=== PATIENT | male | born 1965 | race Caucasian/White ===

== ENCOUNTER 2021-03-18 08:34 | Outpatient (REF) | payer OTHER, SELFPAY ==
[2021-03-18 08:50] LABS: MANUAL DIFF FLAG NO
[2021-03-18 09:47] LABS: Basophils Percent Auto 0.6 % (0-2); Eosinophils Absolute Auto 0.1 X10*3/uL (0.0-0.4); Eosinophils Percent Auto 2.4 % (0-4); Hematocrit 45.8 % (42.0-52.0); Imm Gran Abs Auto 0.01 X10*3/uL (0.00-0.03); Imm Gran Pct Auto 0.2 % (0.0-0.4); Lymphocytes Absolute Auto 2.1 X10*3/uL (1.2-4.9); Lymphocytes Percent Auto 44.1 % (20-40); Mean Corpuscular HGB Conc 34.9 g/dl (31.0-36.0); Mean Corpuscular Hemoglobin 29.9 pg (27.0-33.0); Mean Corpuscular Volume 85.6 fL (80.0-98.0); Mean Platelet Volume 9.9 fL (9.4-12.4); Monocytes Absolute Auto 0.5 X10*3/uL (0.1-1.2); Monocytes Percent Auto 10.1 % (2-11); Neutrophils Percent Auto 42.6 % (45-73); Platelet Count 207 X10*3/uL (160-400); Red Blood Count 5.35 X10*6/uL (4.60-5.80); Red Cell Distribution Width 12.8 % (11.0-16.0); White Blood Count 4.7 X10*3/uL (4.8-10.8)
[2021-03-18 10:12] LABS: Alanine Aminotransferase 34 U/L (0-40); Albumin Level 4.5 g/dL (3.5-5.0); Alkaline Phosphatase 105 U/L (39-117); Anion Gap 11 (12-20); Aspartate Amino Transferase 22 U/L (5-37); Bilirubin Total 0.9 mg/dL (0.0-1.0); Blood Urea Nitrogen 10 mg/dL (9-16); Calcium 9.3 mg/dL (8.4-10.2); Carbon Dioxide 30 mmol/L (22-29); Chloride 104 mmol/L (96-108); Cholesterol 184 mg/dL; Estimated Glomerular Filt Rate > 60; Glucose Fasting 87 mg/dL (60-99); HDL Cholesterol 38 mg/dL; LDL Cholesterol Calculated 114 mg/dl; Sodium 141 mmol/L (135-145); Total Protein 7.5 g/dL (6.5-8.0); Triglycerides 162 mg/dL
[2021-03-25 12:56] LABS: Vitamin D 25-OH, D2 <4 ng/mL; Vitamin D 25-OH, D3 66 ng/mL; Vitamin D 25-OH, Total 66 ng/mL (30-100)
== END 2021-03-18 08:35 | disposition home or self-care (01) ==
LOC: HO.LAB 08:34
PROVIDERS: PCP Internal Medicine; Visit Provider Internal Medicine
DX: K92.1 Melena (principal); D64.9 Anemia, unspecified; I10 Essential (primary) hypertension; E78.5 Hyperlipidemia, unspecified; E55.9 Vitamin D deficiency, unspecified
CPT/HCPCS: 36415; 80053; 80061; 82306; 85025

== ENCOUNTER 2021-07-13 09:01 | Outpatient (REF) | payer OTHER, SELFPAY ==
--- NOTE | 2021-07-13 09:06 | ECG_ITS ---
Test Reason : R00.0 Blood Pressure : / mmHG Vent. Rate : 078 BPM Atrial Rate : 078 BPM P-R Int : 172 ms QRS Dur : 096 ms QT Int : 382 ms P-R-T Axes : 075 041 049 degrees QTc Int : 435 ms Normal sinus rhythm Normal ECG When compared with ECG of 05-FEB-2019 16:31, No significant change was found Referred By: Kathryn Wheeler Electronically Signed By:Lukas Sherman
[2021-07-13 11:09] LABS: Thyroid Stimulating Hormone 1.08 uIU/mL (0.32-4.0)
== END 2021-07-13 09:02 | disposition home or self-care (01) ==
LOC: HO.LAB 09:01
PROVIDERS: PCP Internal Medicine; Visit Provider Internal Medicine
DX: R00.0 Tachycardia, unspecified (principal)
CPT/HCPCS: 36415; 84443; 93005

== ENCOUNTER 2022-02-21 08:02 | Outpatient (REF) | payer OTHER, SELFPAY ==
[2022-02-21 09:02] LABS: Alanine Aminotransferase 43 U/L (0-40); Albumin Level 4.4 g/dL (3.5-5.0); Alkaline Phosphatase 105 U/L (39-117); Anion Gap 14 (12-20); Aspartate Amino Transferase 27 U/L (5-37); Bilirubin Total 0.3 mg/dL (0.0-1.0); Blood Urea Nitrogen 11 mg/dL (9-16); Calcium 9.1 mg/dL (8.4-10.2); Carbon Dioxide 27 mmol/L (22-29); Chloride 103 mmol/L (96-108); Cholesterol 174 mg/dL; Estimated Glomerular Filt Rate > 60; Glucose Random 94 mg/dL (60-115); HDL Cholesterol 38 mg/dL; LDL Cholesterol Calculated 106 mg/dl; Potassium 3.9 mmol/L (3.3-5.1); Sodium 140 mmol/L (135-145); Total Protein 7.2 g/dL (6.5-8.0); Triglycerides 151 mg/dL
[2022-02-21 09:25] LABS: Vitamin D 25-OH Total 29.6 ng/mL (>30)
== END 2022-02-21 08:03 | disposition home or self-care (01) ==
LOC: HO.LAB 08:02
PROVIDERS: PCP Internal Medicine; Visit Provider Internal Medicine
DX: Z00.00 Encounter for general adult medical examination without abnormal findings (principal); E55.9 Vitamin D deficiency, unspecified
CPT/HCPCS: 36415; 80053; 80061; 82306

== ENCOUNTER 2023-01-31 08:01 | Outpatient (REF) | payer OTHER, SELFPAY ==
[2023-01-31 10:24] LABS: Alanine Aminotransferase 22 U/L (0-40); Albumin Level 4.3 g/dL (3.5-5.0); Alkaline Phosphatase 97 U/L (39-117); Anion Gap 12 (12-20); Aspartate Amino Transferase 21 U/L (5-37); Bilirubin Total 0.5 mg/dL (0.0-1.0); Blood Urea Nitrogen 7 mg/dL (9-16); Calcium 9.5 mg/dL (8.4-10.2); Carbon Dioxide 27 mmol/L (22-29); Chloride 106 mmol/L (96-108); Cholesterol 196 mg/dL (<200); Estimated Glomerular Filt Rate > 60; Glucose Fasting 100 mg/dL (60-99); HDL Cholesterol 37 mg/dL (>40); LDL Cholesterol Calculated 112 mg/dL (<100); Potassium 3.5 mmol/L (3.3-5.1); Sodium 141 mmol/L (135-145); Total Protein 7.4 g/dL (6.5-8.0); Triglycerides 235 mg/dL (<150)
[2023-01-31 10:25] LABS: PSA,Total (Free>4and<10) 0.39 ng/mL (0.00-4.00)
[2023-01-31 10:47] LABS: Vitamin D 25-OH Total 27.2 ng/mL (>30)
== END 2023-01-31 08:02 | disposition home or self-care (01) ==
LOC: HO.LAB 08:01
PROVIDERS: PCP Internal Medicine; Visit Provider Internal Medicine
DX: Z12.5 Encounter for screening for malignant neoplasm of prostate (principal); R00.0 Tachycardia, unspecified; E55.9 Vitamin D deficiency, unspecified
CPT/HCPCS: 36415; 80053; 80061; 82306; 84153

== ENCOUNTER 2023-02-07 07:16 | Outpatient (AMB) | payer OTHER, SELFPAY ==
[2023-02-07 07:34] VITALS: BP 148/90; BMI 24.4
--- NOTE | 2023-02-07 07:34 | A.OFFPC_ITS ---
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: No Accompanied by: Self / Same As Patient Allergies amlodipine Adverse Reaction (Intermediate, Verified 02/07/23 07:41) leg edema Contrast dye Allergy (Intermediate, Uncoded 02/07/23 07:41) palpitations, vomiting Medication List - Last Reconciled 02/07/23 by Kathryn Wheeler MD amitriptyline 10 mg PO BEDTIME 90 days amlodipine-benazepril 5-40 mg 1 cap PO DAILY 90 days latanoprost 0.005% 1 drp ophthalmic (eye) QPM timolol maleate 0.5% 1 drp ophthalmic (eye) QAM trazodone 50 mg PO BEDTIME PRN 90 days Tobacco use date assessed: 05/24/22 Dental Screening Dental Screen Date: 02/07/23 Did you have a dental visit in the last 12 months?: Yes Did you have a dental problem in the last 6 months where you did not have access to dental care?: No Was dental information given to patient?: Patient has dentist HPI HPI Comments History of Present Illness Details This is a 59-year-old male that comes for his physical exam. Last colonoscopy was 2018 showing sigmoid diverticulosis and next colonoscopy should be 2023 due to poor prep has per Gastroenterology. No chest pain or shortness of breath. No fever cough. [facility] Medical History Tachycardia Hypovitaminosis D Hematochezia Primary insomnia Essential hypertension Surgical History (Updated 02/07/23 @ 07:46 by Kathryn Wheeler MD) Status post glaucoma surgery History of lipoma Rectal prolapse Family History Father Leukemia Mother No problems noted. Social History Housing: House Alcohol intake: former Patient Tobacco Use Status: Former Tobacco user Tobacco use type: Cigarette e-Cigarette/Vaping Use: Never Used Second Hand Smoke Exposure: No service: No Current occupational status: employed Current occupational exposures/hazards: No Cognitive needs: No Hearing needs: No Vision needs: Yes Questionnaire Thrive Questionnaire Date Thrive assessed: 05/24/22 RANJEET-7 AMB Questionnaire RANJEET-7 Date RANJEET - 7 assessed: 05/24/22 Source: Developed by Drs. Fernando Blair, Pretty Alvarado, César Cowart and colleagues, with an educational sendy from [employer]. Review of Systems Const All systems reviewed & are unremarkable except as noted in HPI and below Eyes Reports no additional complaints, Denies change in vision and Denies other visual disturbances Card Denies chest pain at rest, Denies chest pain with activity, Denies edema, Denies irregular heart rhythm, Denies claudication, Denies dyspnea, Denies dyspnea on exertion, Denies orthopnea, Denies paroxysmal nocturnal dyspnea and Denies slow heart rate Resp Denies cough, Denies dyspnea and Denies dyspnea on exertion GI Denies abdominal pain, Denies change in bowel habits, Denies excessive flatus, Denies nausea and Denies vomiting Denies urinary hesitancy, Denies urinary incontinence and Denies urinary urgency Musc Denies abnormal gait, Denies atrophy, Denies deformity and Denies limited range of motion Skin/Breast Denies bleeding lesions, Denies changing lesions and Denies rash Neuro Denies abnormal gait and Denies lack of coordination Physical exam (Primary Care) Vital Signs: Last Vital Signs BP 148/90 H 02/07/23 07:34 BMI result Body Mass Index 24.4 Tobacco/Smoking Status: Tobacco use Status Tobacco use date assessed 05/24/22 02/07/23 07:38 Patient Tobacco Use Status Former Tobacco user 02/07/23 07:38 Tobacco use type Cigarette 02/07/23 07:38 e-Cigarette/Vaping Use Never Used 02/07/23 07:38 Thrive Assessment: Date of Thrive Assessment Date Thrive assessed 05/24/22 02/07/23 07:38 Const Orientation/consciousness: patient oriented x3 HENMT Head: Yes normal to inspection, Yes normocephalic and Yes atraumatic Ears: external ears normal Eyes General: appearance normal, both eyes and all related structures Eyelids: Yes eyelids normal Conjunctivae: conjunctivae normal Neck Neck: Yes normal visual inspection and Yes supple Resp Effort & Inspection: normal respiratory effort Auscultation: clear to auscultation bilaterally Cardio Jugular venous distension: no JVD Rate: regular rate Rhythm: regular rhythm Heart sounds: S1 normal heart sound present and S2 normal heart sound present GI Inspection: Yes normal to inspection Palpation (GI): Soft to palpation and nontender Auscultation: normal bowel sounds Skin General skin exam: no rashes or lesions noted Neuro General: patient oriented x3 and no focal motor deficits Extrem General: Yes full ROM Psych Appearance: grossly normal Assessment and Plan Assessment & Plan (1) Physical exam: Code(s): Z00.00 - Encounter for general adult medical examination without abnormal findings Plan: Repeat in a year. Coding Level of Care Code Est Pt Prev Care 40-64y(18562) Diagnoses Physical exam Z00.00 Time Spent (min) 31
[2023-02-07 07:59] VITALS: BP 130/80
== END 2023-02-07 07:58 | disposition home or self-care (01) ==
PROVIDERS: PCP Internal Medicine; Visit Provider Internal Medicine
DX: Z00.00 Encounter for general adult medical examination without abnormal findings (principal)
CPT/HCPCS: 99396

== ENCOUNTER 2023-03-06 07:22 | Outpatient (AMB) | payer OTHER, SELFPAY ==
[2023-03-06 07:33] VITALS: BP 132/82; PULSE 69; O2SAT 98; BMI 24.5
--- NOTE | 2023-03-06 07:33 | MHC.PC.OV ---
Vital Signs 03/06/23 07:33 Height 6 ft 1.82 in Weight 190 lb BMI 24.5 BP 132/82 Blood Pressure Location Lt brachial Position Sitting Pulse 69 Pulse Source Pulse Oximeter Pulse Oximetry (%) 98 Oxygen Delivery Method Room Air Intake Visit Reasons: Ongoing cough Allergies amlodipine Adverse Reaction (Intermediate, Verified 03/06/23 07:44) leg edema Contrast dye Allergy (Intermediate, Uncoded 03/06/23 07:34) palpitations, vomiting Medication List - Last Reconciled 03/06/23 by HOLLIS Arrington amitriptyline 10 mg PO BEDTIME 90 days amlodipine-benazepril 5-40 mg 1 cap PO DAILY 90 days latanoprost 0.005% 1 drp ophthalmic (eye) QPM timolol maleate 0.5% 1 drp ophthalmic (eye) QAM trazodone 50 mg PO BEDTIME PRN 90 days Tobacco use date assessed: 05/24/22 Dental Screening Dental Screen Date: 03/06/23 Did you have a dental visit in the last 12 months?: Yes Did you have a dental problem in the last 6 months where you did not have access to dental care?: No Was dental information given to patient?: Patient has dentist HPI HPI Comments History of Present Illness Details 59-year-old male past medical history significant for hypertension, insomnia and glaucoma. Patient Dr.Roca ho seen in October, patient presents today for ongoing cough. 2 weeks ago went to wedding with alot of people. Shortly after got sick was sick with similar symptoms. Few days after that patient reports he started Coughing,chest congestion, sore throat x 1 week which he states is starting to improve. Patient reports that he tested no negative for COVID. Patient denies any shortness of breath and fevers. Reports he is using [id number] Robitussin with improvement. [facility] Medical History Tachycardia Hypovitaminosis D Hematochezia Primary insomnia Essential hypertension Surgical History (Updated 02/07/23 @ 07:46 by Kathryn Wheeler MD) Status post glaucoma surgery History of lipoma Rectal prolapse Family History Father Leukemia Mother No problems noted. Social History Housing: House Alcohol intake: former Patient Tobacco Use Status: Former Tobacco user Tobacco use type: Cigarette e-Cigarette/Vaping Use: Never Used Second Hand Smoke Exposure: No service: No Current occupational status: employed Current occupational exposures/hazards: No Cognitive needs: No Hearing needs: No Vision needs: Yes Questionnaire PHQ-9 Over the last 2 weeks, how often have you been bothered by any of the following problems? 1. Little interest or pleasure in doing things: not at all 2. Feeling down, depressed, or hopeless: not at all 3. Trouble falling or staying asleep, or sleeping too much: not at all 4. Feeling tired or having little energy: not at all 5. Poor appetite or overeating: not at all 6. Feeling bad about yourself - or that you are a failure or have let yourself or your family down: not at all 7. Trouble concentrating on things, such as reading the newspaper or watching television: not at all 8. Moving or speaking so slowly that other people could have noticed. Or the opposite - being so fidgety or restless that you have been moving around a lot more than usual: not at all 9. Thoughts that you would be better off or of hurting yourself in some way: not at all Total score: 0 Depression Screening Interpretation: Negative Depression Screening Done: Yes 41677 - PHQ-9 Billing: Yes Source: Developed by Drs. Fernando Blair, Pretty Alvarado, César Cowart and colleagues, with an educational sendy from [employer]. Thrive Questionnaire Date Thrive assessed: 05/24/22 AUDIT C Alcohol Use Questionnaire (AUDIT-C) 1. How often do you have a drink containing alcohol?: Never Total Score: 0 Score Reviewed/Action Taken: No RANJEET-7 AMB Questionnaire RANJEET-7 Date RANJEET - 7 assessed: 05/24/22 Source: Developed by Drs. Fernando Blair, César Rivera and colleagues, with an educational sendy from [employer]. Review of Systems Const Denies chills, Denies fatigue, Denies fever(s) and Denies poor appetite Eyes Denies no additional complaints ENT Reports Normal hearing present Card Denies chest pain, Denies syncope, Denies rapid heart rate and Denies dyspnea Resp Reports cough and Denies dyspnea GI Denies change in stool character, Denies constipation, Denies diarrhea, Denies nausea and Denies vomiting Denies dysuria, Denies urinary frequency and Denies urinary urgency Neuro Reports Normal hearing present, Denies confusion and Denies syncope Psych Denies confusion Endo Denies fatigue Physical exam (Primary Care) Vital Signs: Last Vital Signs Pulse 69 03/06/23 07:33 BP 132/82 03/06/23 07:33 Pulse Ox 98 03/06/23 07:33 Oxygen Delivery Method Room Air 03/06/23 07:33 BMI result Body Mass Index 24.5 Tobacco/Smoking Status: Tobacco use Status Tobacco use date assessed 05/24/22 03/06/23 07:35 Patient Tobacco Use Status Former Tobacco user 03/06/23 07:35 Tobacco use type Cigarette 03/06/23 07:35 e-Cigarette/Vaping Use Never Used 03/06/23 07:35 PHQ-9: PHQ-9 Score PHQ-9: Total score 0 03/06/23 07:51 Depression Screening Interpretation: Negative Thrive Assessment: Date of Thrive Assessment Date Thrive assessed 05/24/22 03/06/23 07:35 Const General: No confusion Orientation/consciousness: No confusion HENMT Head: Yes normocephalic and Yes atraumatic Ears: external ears normal and TM's normal bilaterally General nose exam: Normal external nose present and Normal nasal mucous membranes and turbinates present Face and sinus: Yes normal facial exam and Yes sinuses nontender Mouth: moist mucous membranes Throat: Yes tonsils normal Eyes Conjunctivae: conjunctivae normal Neck Neck: Yes no lymphadenopathy and Yes supple Thyroid: Thyroid normal Chest Chest palpation & inspection: normal inspection of the chest Resp Effort & Inspection: normal respiratory effort Auscultation: clear to auscultation bilaterally, no crackles, no rhonchi and no wheezes Cardio Rate: regular rate Rhythm: regular rhythm Heart sounds: S1 normal heart sound present and S2 normal heart sound present GI Inspection: Yes normal to inspection Neuro General: No confusion Cranial nerves: Yes Normal hearing present Extrem General: No edema Assessment and Plan Assessment & Plan (1) Essential hypertension: Code(s): I10 - Essential (primary) hypertension Plan: Continue on amlodipine-benazepril. Follow low-salt diet and exercise. (2) Upper respiratory infection: Code(s): J06.9 - Acute upper respiratory infection, unspecified Plan: At home COVID test negative. Upper respiratory infection likely related to a viral illness. Patient advise can continue to treat symptomatically wrist Robitussin, offered prescription for benzonatate however patient declined states Robitussin is helping him and cough is improving For mild sore throat patient can gargle with warm salt water and use throat lozenges to soothe throat. Signs and symptoms reviewed with patient when to follow-up with PCP. Plan Keep scheduled follow-up with PCP in June Coding Level of Care Code Est Pt Level 3 (61640) Diagnoses Essential hypertension I10 Upper respiratory infection J06.9
== END 2023-03-06 07:57 | disposition home or self-care (01) ==
PROVIDERS: PCP Internal Medicine; Visit Provider Nurse Practitioner Family
DX: I10 Essential (primary) hypertension (principal); J06.9 Acute upper respiratory infection, unspecified
CPT/HCPCS: 99213

== ENCOUNTER 2023-03-09 10:27 | Outpatient (AMB) | payer OTHER, SELFPAY ==
[2023-03-09 10:30] VITALS: BP 140/78; PULSE 80; TEMP 36.7; O2SAT 99; BMI 24.4
--- NOTE | 2023-03-09 10:30 | MHC.OFFWIV ---
Intake Vital Signs 03/09/23 10:30 Height 6 ft 1.82 in Weight 189 lb BMI 24.4 BP 140/78 H Blood Pressure Location Lt brachial Position Sitting Pulse 80 Pulse Source Pulse Oximeter Temp 98.0 F Temp Source Temporal Artery Scan Pulse Oximetry (%) 99 Oxygen Delivery Method Room Air Intake Visit Reasons: EP, cough (masked) Intake Note: pt is here for c/o cough 2 weeks Patient Tobacco Use Status: Former Tobacco user Allergies amlodipine Adverse Reaction (Intermediate, Verified 03/09/23 10:30) leg edema Contrast dye Allergy (Intermediate, Uncoded 03/06/23 07:34) palpitations, vomiting Do you need a note to return to daycare/school/sports/work: Yes HPI HPI Comments History of Present Illness Details This is a 59-year-old male who presents to the office today for sick visit. Patient complaining of sore throat and cough x2 weeks. 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 He denies any fevers or chills. He reports some wheezing at nighttime. He denies any sputum production. He denies any chest pain or shortness of breath. He reports odynophagia but denies dysphagia or throat swelling. He denies any neck swelling. [facility] Medical History Tachycardia Hypovitaminosis D Hematochezia Primary insomnia Essential hypertension Surgical History (Updated 02/07/23 @ 07:46 by Kathryn Wheeler MD) Status post glaucoma surgery History of lipoma Rectal prolapse Family History Father Leukemia Mother No problems noted. Social History Housing: House Alcohol intake: former Patient Tobacco Use Status: Former Tobacco user Tobacco use type: Cigarette e-Cigarette/Vaping Use: Never Used Second Hand Smoke Exposure: No service: No Current occupational status: employed Current occupational exposures/hazards: No Cognitive needs: No Hearing needs: No Vision needs: Yes Review of Systems Const All systems reviewed & are unremarkable except as noted in HPI and below Reports no additional complaints Eyes Reports no additional complaints ENT Reports no additional complaints Card Reports no additional complaints Resp Reports no additional complaints GI Reports no additional complaints Reports no additional complaints Musc Reports no additional complaints Skin/Breast Reports system reviewed and no additional complaints, except as documented Neuro Reports no additional complaints Psych Reports no additional complaints Endo Reports no additional complaints Martell/Lymph Reports no additional complaints Aller/Immun Reports no additional complaints Physical Exam Const Other: Vital signs reviewed. Constitutional: Non-toxic appearing. No acute distress. Well-developed and well-nourished. HEENT: Normocephalic and atraumatic. Tympanic membranes without erythema, edema, or bulging bilaterally. External auditory canals without erythema or edema bilaterally. Moist mucous membranes. Mild posterior pharyngeal erythema without exudates. No peritonsillar mass or abscess. No uvular deviation. No tonsillar hypertrophy/edema. Skin: Warm and dry. No rashes or lesions noted. Neck: Full and painless range of motion. No cervical lymphadenopathy. No unilateral neck swelling. Cardio: Regular rate and rhythm. No murmurs, gallops, or rubs. No lower extremity edema. No JVD. Pulmonary: No respiratory distress. No accessory muscle usage. Minimal scattered expiratory wheezing. Gastrointestinal: Soft, nontender, and nondistended in all 4 quadrants. Normoactive bowel sounds in all 4 quadrants. Genitourinary: No CVA tenderness. Musculoskeletal: Normal range of motion in joints throughout the body. No deformity or other signs of injury. Neuro: Alert and oriented x4. Cranial nerves 2-12 grossly intact. No focal deficits appreciated. Psych: Normal mood and affect. Assessment & Plan Assessment & Plan (1) Acute bronchitis: Code(s): J20.9 - Acute bronchitis, unspecified Plan: This is a 59-year-old male presenting with persistent sore throat and cough x2 weeks. On physical examination, patient has minimal scattered expiratory wheezing and mild posterior pharyngeal erythema without exudates. His vital signs are stable, his physical exam is otherwise benign, and he is overall nontoxic appearing. History and physical most consistent with viral pharyngitis and acute bronchitis. No evidence of peritonsillar mass/abscess, peritonsillar cellulitis, or, unilateral neck swelling. No fevers/chills or sputum production to suggest pneumonia. Check rapid strep test. Check COVID/flu/RSV. Patient will be treated with p.o. prednisone 40 mg daily x5 days as well as p.o. azithromycin 500 mg today followed by 250 mg daily x4 days. Recommended symptomatic management including rest, increased fluids, advil/tylenol for pain/fever, salt water gargles, and over the counter throat lozenges/decongestants. Patient advised to follow up here or go to the emergency room for worsening/persistent symptoms. Patient verbalizes understanding and is in agreement the plan. Plan This is a 59-year-old male presenting to the office complaining of . Orders: Orders SARS-CoV2/FLU/RSV Today R09.89 - Other specified symptoms and signs involving the circulatory and respiratory systems Medications: New azithromycin For 250 mg dose pack: take 500 mg today (day 1), then 250 mg for 4 days (days 2-5) PO 6 tabs 0RF prednisone 40 mg (2 x 20 mg) PO DAILY 10 tabs 0RF Coding Level of Care Code Est Pt Level 3 (73828) Diagnoses Acute bronchitis J20.9
== END 2023-03-09 11:05 | disposition home or self-care (01) ==
PROVIDERS: PCP Internal Medicine; Visit Provider Physician Assistant Medical
DX: J20.9 Acute bronchitis, unspecified (principal)
CPT/HCPCS: 99213

== ENCOUNTER 2023-03-09 11:04 | Outpatient (REF) | payer OTHER, SELFPAY ==
[2023-03-09 15:31] LABS: Influenza A PCR NEGATIVE (Negative); Influenza B PCR NEGATIVE (Negative); Resp Syncy Virus RNA Qual PCR NEGATIVE (Negative); SARS COV2 PCR INHOUSE POSITIVE (Negative)
== END 2023-03-09 11:05 | disposition home or self-care (01) ==
LOC: HO.LAB 11:04
PROVIDERS: Visit Provider Physician Assistant Medical
DX: Z11.52 Encounter for screening for COVID-19 (principal); Z20.822 Contact with and (suspected) exposure to COVID-19; R07.89 Other chest pain
CPT/HCPCS: 0241U

== ENCOUNTER 2023-04-12 07:31 | Outpatient (AMB) | payer OTHER, SELFPAY ==
--- NOTE | 2023-04-12 07:32 | MHC.PC.OV ---
Intake Visit Reasons: antibiotic questions Allergies amlodipine Adverse Reaction (Intermediate, Verified 04/12/23 07:32) leg edema Contrast dye Allergy (Intermediate, Uncoded 04/12/23 07:32) palpitations, vomiting Tobacco use date assessed: 05/24/22 Dental Screening Dental Screen Date: 04/18/23 Did you have a dental visit in the last 12 months?: Yes Did you have a dental problem in the last 6 months where you did not have access to dental care?: No Was dental information given to patient?: Patient has dentist HPI HPI Comments History of Present Illness Details 59-year-old male past medical history significant for hypertension, insomnia and glaucoma. Patient last seen in February. Patient presents today for a telehealth appointment. Patient tested positive for COVID on 03/09/23 states he was seen at the walk-in clinic in [place] was prescribed a Z-Jayant with no improvement. Patient went to urgent care in [place] on 03/20/2023 for ongoing cough, shortness of breath and wheezing patient reports that he did have a chest x-ray completed which showed a little bit of fluid in his lungs patient was treated with doxycycline, prednisone, cough medicine and inhaler for likely post COVID pneumonia. Patient reports today that he is feeling better he does still have some lingering wheezing and cough in the morning when he has to clear himself out. Denies any fever, chills, sob. Patient reports using albuterol inhaler daily with relief. [facility] Medical History (Updated 04/12/23 @ 07:51 by HOLLIS Arrington) Tachycardia Hypovitaminosis D Hematochezia Primary insomnia Essential hypertension Surgical History (Updated 02/07/23 @ 07:46 by Kathryn Wheeler MD) Status post glaucoma surgery History of lipoma Rectal prolapse Family History Father Leukemia Mother No problems noted. Social History Housing: House Alcohol intake: former Patient Tobacco Use Status: Former Tobacco user Tobacco use type: Cigarette e-Cigarette/Vaping Use: Never Used Second Hand Smoke Exposure: No service: No Current occupational status: employed Current occupational exposures/hazards: No Cognitive needs: No Hearing needs: No Vision needs: Yes Questionnaire PHQ-9 Over the last 2 weeks, how often have you been bothered by any of the following problems? 1. Little interest or pleasure in doing things: not at all 2. Feeling down, depressed, or hopeless: not at all 3. Trouble falling or staying asleep, or sleeping too much: not at all 4. Feeling tired or having little energy: not at all 5. Poor appetite or overeating: not at all 6. Feeling bad about yourself - or that you are a failure or have let yourself or your family down: not at all 7. Trouble concentrating on things, such as reading the newspaper or watching television: not at all 8. Moving or speaking so slowly that other people could have noticed. Or the opposite - being so fidgety or restless that you have been moving around a lot more than usual: not at all 9. Thoughts that you would be better off or of hurting yourself in some way: not at all Total score: 0 Depression Screening Interpretation: Negative Depression Screening Done: Yes 50093 - PHQ-9 Billing: Yes Source: Developed by Drs. Fernando Blair, Pretty Alvarado, César Cowart and colleagues, with an educational sendy from [employer]. Thrive Questionnaire Date Thrive assessed: 05/24/22 AUDIT C Alcohol Use Questionnaire (AUDIT-C) 1. How often do you have a drink containing alcohol?: Never Total Score: 0 Score Reviewed/Action Taken: No RANJEET-7 AMB Questionnaire RANJEET-7 Date RANJEET - 7 assessed: 05/24/22 Source: Developed by Drs. Fernando Blair, César Rivera and colleagues, with an educational sendy from [employer]. Review of Systems Card Denies chest pain and Denies rapid heart rate Resp Reports cough and Reports wheezing Aller/Immun Reports wheezing Physical exam (Primary Care) Vital Signs: unbale to complete telehealth exam Tobacco/Smoking Status: Tobacco use Status Tobacco use date assessed 05/24/22 04/12/23 07:37 Patient Tobacco Use Status Former Tobacco user 04/12/23 07:37 Tobacco use type Cigarette 04/12/23 07:37 e-Cigarette/Vaping Use Never Used 11/30/23 07:37 PHQ-9: PHQ-9 Score PHQ-9: Total score 0 04/12/23 07:45 Depression Screening Interpretation: Negative Thrive Assessment: Date of Thrive Assessment Date Thrive assessed 05/24/22 04/12/23 07:37 Telehealth Telehealth Location of provider rendering services: practice address Location of patient: address on file Patient Identification confirmed using: Name, : Yes Telehealth method: voice only Patient verbally consented to treatment: Yes Patient verbally consented to billing insurance company: Yes Patient informed of any privacy concerns related to visit: Yes Assessment and Plan Assessment & Plan (1) Cough: Code(s): R05.9 - Cough, unspecified Plan: Can continue to cough medicine as needed as prescribed urgent care. (2) Wheezing: Code(s): R06.2 - Wheezing Plan: Will send short course of prednisone given patient continuing to experience lingering wheezing. Continue use inhaler as needed. Signs and symptoms reviewed with patient when to follow-up or seek medical attention. Patient agreeable with plan of care. Plan Keep scheduled follow-up with PCP Medications: New prednisone 10 mg PO DAILY 5 tabs 0RF R05.9 - Cough, unspecified, R06.2 - Wheezing Coding Level of Care Code Tele Est Pt Level 3 (96354) Diagnoses Cough R05.9 Wheezing R06.2
== END 2023-04-12 07:52 | disposition home or self-care (01) ==
LOC: HO.HMGH 07:31
PROVIDERS: PCP Internal Medicine; Visit Provider Nurse Practitioner Family
DX: R05.9 Cough, unspecified (principal); R06.2 Wheezing
CPT/HCPCS: 99213

== ENCOUNTER 2023-07-11 09:22 | Outpatient (AMB) | payer OTHER, SELFPAY ==
--- NOTE | 2023-07-11 09:30 | A.OFFPC_ITS ---
Vital Signs 07/11/23 09:31 Height 6 ft 1.82 in Weight 184 lb BMI 23.7 BP 130/80 Blood Pressure Location Lt brachial Position Sitting Intake Visit Reasons: bp Intake Note: Patient here for a follow up BP, c/o chest congestion, light headedness Ammonium Nitrate Crystallizer Required: No Accompanied by: Self / Same As Patient Allergies amlodipine Adverse Reaction (Intermediate, Verified 07/11/23 09:43) leg edema Contrast dye Allergy (Intermediate, Uncoded 07/11/23 09:43) palpitations, vomiting Medication List - Last Reconciled 07/11/23 by Kathryn Wheeler MD amitriptyline 10 mg PO BEDTIME 90 days amlodipine-benazepril 5-40 mg 1 cap PO DAILY 90 days latanoprost 0.005% 1 drp ophthalmic (eye) QPM timolol maleate 0.5% 1 drp ophthalmic (eye) QAM trazodone 50 mg PO BEDTIME PRN 90 days Tobacco use date assessed: 07/11/23 Dental Screening Dental Screen Date: 07/11/23 Did you have a dental visit in the last 12 months?: Yes Did you have a dental problem in the last 6 months where you did not have access to dental care?: No Was dental information given to patient?: Patient has dentist HPI HPI Comments History of Present Illness Details This is a 59-year-old male with hypertension, primary insomnia and hypertriglyceridemia that comes today complaining of nasal and chest congestion that started about 3-4 days ago with no fever. It was associated with some diff use myalgias. Today he feels markedly improved. He has been feeling some left lung congestion for a while. Blood pressure stable. Insomnia well controlled with trazodone and amitriptyline. Last triglycerides were mildly elevated and this will be repeated for the next office visit. No chest pain or shortness of breath. [facility] Medical History (Updated 07/11/23 @ 09:58 by Kathryn Wheeler MD) Tachycardia Hypovitaminosis D Hematochezia Primary insomnia Essential hypertension Surgical History Status post glaucoma surgery History of lipoma Rectal prolapse Family History Father Leukemia Mother No problems noted. Social History Housing: House Alcohol intake: former Patient Tobacco Use Status: Former Tobacco user Tobacco use type: Cigarette e-Cigarette/Vaping Use: Never Used Second Hand Smoke Exposure: No service: No Current occupational status: employed Current occupational exposures/hazards: No Cognitive needs: No Hearing needs: No Vision needs: Yes Questionnaire PHQ-9 Over the last 2 weeks, how often have you been bothered by any of the following problems? 1. Little interest or pleasure in doing things: not at all 2. Feeling down, depressed, or hopeless: not at all 3. Trouble falling or staying asleep, or sleeping too much: not at all 4. Feeling tired or having little energy: not at all 5. Poor appetite or overeating: not at all 6. Feeling bad about yourself - or that you are a failure or have let yourself or your family down: not at all 7. Trouble concentrating on things, such as reading the newspaper or watching television: not at all 8. Moving or speaking so slowly that other people could have noticed. Or the opposite - being so fidgety or restless that you have been moving around a lot more than usual: not at all 9. Thoughts that you would be better off or of hurting yourself in some way: not at all Total score: 0 Depression Screening Interpretation: Negative Depression Screening Done: Yes 01443 - PHQ-9 Billing: Yes Source: Developed by Drs. Fernando Blair, Pretty Alvarado, César Cowart and colleagues, with an educational sendy from [employer]. Thrive Questionnaire Date Thrive assessed: 07/11/23 I am a: Patient What is your living situation today?: I have a steady place to live Within the past 12 months, did the food you bought not last and you didn't have the money to get more?: Never true Within the past 12 months, did you worry whether your food would run out before you got money to buy more?: Never true Do you have trouble paying for medicines?: No Do you have trouble getting transportation to medical appointments?: No Do you have trouble paying your heating and electricity bill?: No Do you have trouble taking care of your child, family member or friend?: No Do you have trouble with day-to-day activities such as bathing, preparing meals, shopping, managing finances, etc.?: No Are you currently unemployed and looking for a job?: No Are you interested in more education?: No Please select the resources that you would like help with: Education and None Currently or been in a relationship where the following occur: no concerns reported THRIVE Score: 0 AUDIT C Alcohol Use Questionnaire (AUDIT-C) 1. How often do you have a drink containing alcohol?: Never Total Score: 0 RANJEET-7 AMB Questionnaire RANJEET-7 Date RANJEET - 7 assessed: 07/11/23 Feeling nervous, anxious, or on edge: 0 = Not at all Not being able to stop or control worryin = Not at all Worrying too much about different things: 0 = Not at all Trouble relaxin = Not at all Being so restless that it is hard to sit still: 0 = Not at all Becoming easily annoyed or irritable: 0 = Not at all Feeling afraid as if something awful might happen: 0 = Not at all Total RANJEET-7 score (0-4 normal; 5-9 mild; 10-14 moderate; 15-21 severe): 0 Source: Developed by Drs. Fernando Blair, Pretty Alvarado, César Cowart and colleagues, with an educational sendy from [employer]. RANJEET-7 Assessment Billing RANJEET-7 Assessment Tool: RANJEET-7 Assessment 72076 Review of Systems Const All systems reviewed & are unremarkable except as noted in HPI and below Eyes Reports no additional complaints, Denies change in vision and Denies other visual disturbances Card Denies chest pain at rest, Denies chest pain with activity, Denies edema, Denies irregular heart rhythm, Denies claudication, Denies dyspnea, Denies dyspnea on exertion, Denies orthopnea, Denies paroxysmal nocturnal dyspnea and Denies slow heart rate Resp Denies cough, Denies dyspnea and Denies dyspnea on exertion GI Denies abdominal pain, Denies change in bowel habits, Denies excessive flatus, Denies nausea and Denies vomiting Denies urinary hesitancy, Denies urinary incontinence and Denies urinary urgency Musc Denies atrophy, Denies deformity and Denies limited range of motion Physical exam (Primary Care) Vital Signs: Last Vital Signs BP 130/80 07/11/23 09:31 BMI result Body Mass Index 23.7 Tobacco/Smoking Status: Tobacco use Status Tobacco use date assessed 07/11/23 07/11/23 09:40 Patient Tobacco Use Status Former Tobacco user 07/11/23 09:40 Tobacco use type Cigarette 07/11/23 09:40 e-Cigarette/Vaping Use Never Used 07/11/23 09:40 PHQ-9: PHQ-9 Score PHQ-9: Total score 0 07/11/23 09:44 Depression Screening Interpretation: Negative Thrive Assessment: Date of Thrive Assessment Date Thrive assessed 07/11/23 07/11/23 09:40 Currently or been in a relationship where the following occur: no concerns reported Eyes General: appearance normal, both eyes and all related structures Eyelids: Yes eyelids normal Conjunctivae: conjunctivae normal Neck Neck: Yes normal visual inspection and Yes supple Resp Effort & Inspection: normal respiratory effort Auscultation: clear to auscultation bilaterally Cardio Jugular venous distension: no JVD Rate: regular rate Rhythm: regular rhythm Heart sounds: S1 normal heart sound present and S2 normal heart sound present Extrem General: Yes full ROM Assessment and Plan Assessment & Plan (1) Essential hypertension: Code(s): I10 - Essential (primary) hypertension Plan: Continue amlodipine-benazepril. Blood pressure goal is equal or less than 130/80. (2) Primary insomnia: Code(s): F51.01 - Primary insomnia Plan: Continue amitriptyline and trazodone. (3) Hypertriglyceridemia: Code(s): E78.1 - Pure hyperglyceridemia Plan: Repeat lipid panel in 6 months. (4) URI (upper respiratory infection): Code(s): J06.9 - Acute upper respiratory infection, unspecified Plan: Continue kutx-dqh-puphaid cold medications as needed. Orders: Orders Vitamin D 25-OH Total 6 Months E55.9 - Vitamin D deficiency, unspecified Lipid Panel 6 Months E78.5 - Hyperlipidemia, unspecified, I10 - Essential (primary) hypertension Comprehensive [place]. Panel Fast 6 Months I10 - Essential (primary) hypertension XR chest 2V Today R06.2 - Wheezing Coding Level of Care Code Est Pt Level 4 (88131) Diagnoses Essential hypertension I10 Primary insomnia F51.01 Hypertriglyceridemia E78.1 URI (upper respiratory infection) J06.9 Additional Codes RANJEET-7 Assessment Billing - RANJEET-7 Assessment Tool: RANJEET-7 Assessment 95295 ([id number]) Time Spent (min) 22
[2023-07-11 09:31] VITALS: BP 130/80; BMI 23.7
== END 2023-07-11 09:56 | disposition home or self-care (01) ==
PROVIDERS: PCP Internal Medicine; Visit Provider Internal Medicine
DX: I10 Essential (primary) hypertension (principal); F51.01 Primary insomnia; E78.1 Pure hyperglyceridemia; J06.9 Acute upper respiratory infection, unspecified
CPT/HCPCS: 99214

== ENCOUNTER 2023-07-11 10:03 | Outpatient (REF) | payer OTHER, SELFPAY ==
--- NOTE | ~2023-07-11 | XR_ITS ---
EXAMINATION: XR CHEST CLINICAL INFORMATION: Wheezing COMPARISON: None available. TECHNIQUE: 2 views of the chest were obtained. FINDINGS: No significant abnormality is noted involving the heart, lungs, mediastinum, bony thorax or soft tissues. XR/XR chest 2V IMPRESSION: Unremarkable examination.
== END 2023-07-11 10:04 | disposition home or self-care (01) ==
LOC: HO.XRAY 10:03
PROVIDERS: PCP Internal Medicine; Visit Provider Internal Medicine
DX: R06.2 Wheezing (principal)
CPT/HCPCS: 71046

== ENCOUNTER 2023-10-12 08:11 | Outpatient (AMB) | payer OTHER, SELFPAY ==
--- NOTE | 2023-10-12 08:25 | MHC.OFFWIV ---
Intake Vital Signs 10/12/23 08:26 Height 6 ft 1 in Weight 188 lb BMI 24.8 BP 130/86 Blood Pressure Location Lt brachial Position Sitting Pulse 78 Pulse Source Pulse Oximeter Temp 98.3 F Temp Source Oral Pulse Oximetry (%) 98 Oxygen Delivery Method Room Air Intake Visit Reasons: Est/ exposure to hepatitis A (lobby) Intake Note: pt is here for possible exposure to Hep A due to exposure to his . Patient Tobacco Use Status: Former Tobacco user Allergies amlodipine Adverse Reaction (Intermediate, Verified 10/12/23 08:28) leg edema Contrast dye Allergy (Intermediate, Uncoded 07/11/23 09:43) palpitations, vomiting Do you need a note to return to daycare/school/sports/work: No HPI HPI Comments History of Present Illness Details He presents t office with concern Hepatitis A He said his travels and eats ethnic food She got really sick and went to the hospital Sunday and was tested + Hepatitis A Pt presents without symptoms He said he wants to be tested for this as well. No abdominal pain, nausea, vomiting, fevers PFSH Medical History Tachycardia Hypovitaminosis D Hematochezia Primary insomnia Essential hypertension Surgical History Status post glaucoma surgery History of lipoma Rectal prolapse Family History Father Leukemia Mother No problems noted. Social History Housing: House Alcohol intake: former Patient Tobacco Use Status: Former Tobacco user Tobacco use type: Cigarette e-Cigarette/Vaping Use: Never Used Second Hand Smoke Exposure: No service: No Current occupational status: employed Current occupational exposures/hazards: No Cognitive needs: No Hearing needs: No Vision needs: Yes Review of Systems Const Denies chills, Denies fatigue and Denies fever(s) Resp Denies cough GI Denies abdominal pain, Denies diarrhea, Denies nausea and Denies vomiting Musc Denies myalgias Endo Denies fatigue Physical Exam Vital Signs: Last Vital Signs Temp 98.3 F 10/12/23 08:26 Pulse 78 10/12/23 08:26 BP 130/86 10/12/23 08:26 Pulse Ox 98 10/12/23 08:26 Oxygen Delivery Method Room Air 10/12/23 08:26 BMI result Body Mass Index 24.8 General: Non-toxic, NAD. Speaking full sentences. Skin: Warm dry throughout Respiratory: CTA bilaterally. No wheezes, rales or rhonchi Cardiac: RRR. No murmur MSK: Full ROM extremities. Neurology: A/O. No aphasia or facial droop. Gait without abnormality Psych: Good mood and affect Assessment & Plan Assessment & Plan (1) Exposure to hepatitis A: Code(s): Z20.5 - Contact with and (suspected) exposure to viral hepatitis Plan: Will obtain Hepatitis A,B and C Will call with concerns Discussed f/u with PCP Orders: Orders Hepatitis A,B,C Profile Today Z20.5 - Contact with and (suspected) exposure to viral hepatitis Coding Level of Care Code Est Pt Level 3 (94164) Diagnoses Exposure to hepatitis A Z20.5
[2023-10-12 08:26] VITALS: BP 130/86; PULSE 78; TEMP 36.8; O2SAT 98; BMI 24.8
== END 2023-10-12 12:39 | disposition home or self-care (01) ==
PROVIDERS: PCP Internal Medicine; Visit Provider Physician Assistant
DX: Z20.5 Contact with and (suspected) exposure to viral hepatitis (principal)
CPT/HCPCS: 99213

== ENCOUNTER 2023-10-12 08:39 | Outpatient (REF) | payer OTHER, SELFPAY ==
[2023-10-12 11:04] LABS: HBS Num1 0.45 mIU/mL (0-7.99); HBc Num1 0.12 S/CO (0.00-0.79); HBsAGNum1 0.28 S/CO (0.00-0.99); Hepatitis A Antibody IgM 0.18 Index (0-0.79); Hepatitis B Core Antibody Nonreactive (Nonreactive); Hepatitis B Surface Antigen Negative (Negative); ~Hepatitis A Antibody IgM Nonreactive (Nonreactive); ~Hepatitis B Surface Antibody NONREACTIVE (Nonreactive); ~Hepatitis C Antibody Nonreactive (Nonreactive)
== END 2023-10-12 08:40 | disposition home or self-care (01) ==
LOC: HO.HMGCLDS 08:39
PROVIDERS: PCP Internal Medicine; Visit Provider Physician Assistant
DX: Z20.5 Contact with and (suspected) exposure to viral hepatitis (principal)
CPT/HCPCS: 36415; 86704; 86706; 86709; 86803; 87340

== ENCOUNTER 2024-04-07 15:37 | Outpatient (AMB) | payer OTHER, SELFPAY ==
[2024-04-07 16:25] VITALS: BP 140/100; PULSE 67; TEMP 36.9; O2SAT 97
--- NOTE | 2024-04-07 16:25 | MHC.OFFWIV ---
Intake Vital Signs 04/07/24 16:25 Weight 190 lb BP 140/100 H Blood Pressure Location Lt brachial Position Sitting Pulse 67 Pulse Source Pulse Oximeter Temp 98.5 F Temp Source Oral Pulse Oximetry (%) 97 Oxygen Delivery Method Room Air Intake Visit Reasons: EP-cough, chest congestion Intake Note: Patient here for cough that has been present since 03/17 and chest congestion. Patient Tobacco Use Status: Former Tobacco user Allergies amlodipine Adverse Reaction (Intermediate, Verified 04/07/24 16:26) leg edema Contrast dye Allergy (Intermediate, Uncoded 04/07/24 16:26) palpitations, vomiting HPI HPI Comments History of Present Illness Details This is a 60-year-old male with a past medical history of hypertension and glaucoma presenting for evaluation of a cough that 1st started on approximately March 19. Patient states that his cough and chest congestion have significantly improved and he only has a residual cough occasionally at night. Patient describes his cough as dry in nature and denies having any fevers, chills, chest pain or hemoptysis. 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 [facility] Medical History Tachycardia Hypovitaminosis D Hematochezia Primary insomnia Essential hypertension Surgical History Status post glaucoma surgery History of lipoma Rectal prolapse Family History Father Leukemia Mother No problems noted. Social History Housing: House Alcohol intake: former Patient Tobacco Use Status: Former Tobacco user Tobacco use type: Cigarette e-Cigarette/Vaping Use: Never Used Second Hand Smoke Exposure: No service: No Current occupational status: employed Current occupational exposures/hazards: No Cognitive needs: No Hearing needs: No Vision needs: Yes Review of Systems Const All systems reviewed & are unremarkable except as noted in HPI and below Denies body aches, Denies chills, Denies fatigue and Denies fever(s) Eyes Reports no additional complaints ENT Reports no additional complaints Card Denies chest pain, Denies dyspnea and Denies dyspnea on exertion Resp Denies chest congestion, Reports cough, Denies hemoptysis, Denies dyspnea and Denies dyspnea on exertion GI Denies abdominal pain, Denies nausea and Denies vomiting Reports no additional complaints Musc Reports no additional complaints Skin/Breast Reports system reviewed and no additional complaints, except as documented Neuro Reports no additional complaints Psych Reports no additional complaints Endo Reports no additional complaints and Denies fatigue Physical Exam Vital Signs: Last Vital Signs Temp 98.5 F 04/07/24 16:25 Pulse 67 04/07/24 16:25 BP 140/100 H 04/07/24 16:25 Pulse Ox 97 04/07/24 16:25 Oxygen Delivery Method Room Air 04/07/24 16:25 Patient is hypertensive; states compliant with antihypertensive regimen daily. Const General: cooperative, healthy appearing, comfortable, no acute distress, well developed, alert, awake and Physically active; No ill appearing or lethargic Nutritional Appearance: average body habitus Orientation/consciousness: patient oriented x3 and No lethargic Limitations: no limitations HEENT Head: Yes normal to inspection and Yes normocephalic Ears: hearing grossly normal bilaterally, external ears normal, TM's normal bilaterally and EAC's normal General nose exam: Normal external nose present Face and sinus: Yes normal facial exam and Yes sinuses nontender Mouth: Normal oral and palatal mucosa present Throat: Yes posterior oropharynx normal and No postnasal drainage Eyes General: appearance normal, both eyes and all related structures Visual Lepe: normal visual lepe by confrontation Conjunctivae: conjunctivae normal EOM: EOMs intact bilaterally Neck Lymphatic: no lymphadenopathy noted Resp Effort & Inspection: normal respiratory effort, able to speak in complete sentences, no audible wheezes, no cough, respiratory effort not decreased and no respiratory distress Auscultation: clear to auscultation bilaterally, no rales, no rhonchi and no wheezes Cardio Rate: regular rate Rhythm: regular rhythm Neuro General: patient oriented x3 Psych Appearance: grossly normal Mental Status: mental status grossly normal Insight: Good insight present (Psych) Judgement: Good judgement present (Psych) Assessment & Plan Assessment & Plan (1) Acute upper respiratory infection: Comment: Lungs are clear to auscultation bilaterally; imaging deferred at this time. Patient is afebrile and well appearing. Code(s): J06.9 - Acute upper respiratory infection, unspecified Plan: Increase fluids daily, hot tea with honey and OTC cough medicine as needed. Coding Level of Care Code Est Pt Level 3 (33139) Diagnoses Acute upper respiratory infection J06.9 Time Spent (min) 20
== END 2024-04-07 16:57 | disposition home or self-care (01) ==
PROVIDERS: PCP Internal Medicine; Visit Provider Physician Assistant
DX: J06.9 Acute upper respiratory infection, unspecified (principal)

== ENCOUNTER → 2024-04-07 15:37 | Outpatient (BNVA) | payer OTHER, SELFPAY | PROVIDERS: PCP Internal Medicine; Visit Provider Physician Assistant ==

== ENCOUNTER 2024-04-28 08:38 | Outpatient (AMB) | payer OTHER, SELFPAY ==
[2024-04-28 08:47] VITALS: BP 132/76; PULSE 75; TEMP 36.1; O2SAT 98; BMI 24.7
--- NOTE | 2024-04-28 08:47 | MHC.OFFWIV ---
Intake Vital Signs 04/28/24 08:47 Height 6 ft 1 in Weight 187 lb BMI 24.7 BP 132/76 Blood Pressure Location Lt brachial Position Sitting Pulse 75 Pulse Source Pulse Oximeter Temp 97.0 F Temp Source Temporal Artery Scan Pulse Oximetry (%) 98 Oxygen Delivery Method Room Air Intake Visit Reasons: EP-f/up from 04/07/24 Intake Note: Pt presents to the office today for c/o left sided congestion since he was last seen on 04/07/24. Patient Tobacco Use Status: Former Tobacco user Allergies amlodipine Adverse Reaction (Intermediate, Verified 04/28/24 08:50) leg edema Contrast dye Allergy (Intermediate, Uncoded 04/28/24 08:50) palpitations, vomiting HPI EP-f/up from 04/07/24 HPI Details This note is constructed using voice recognition software. While every effort has been made to ensure accuracy, grout machine tender errors may have been included. The patient is a 60 year old male who presents to the clinic today with mild cough and congestion since early March. He was last seen in the clinic 04/07/2024. Since that time he has been feeling overall better from onset. He denies fever, chills, shortness of breath, any production with the sputum. He reports that on the left side he feels like he gets some congestion, however it clears easily. He is taking fluticasone nasal spray since his last visit, which he attributes to helping his symptoms significantly. [facility] Medical History Tachycardia Hypovitaminosis D Hematochezia Primary insomnia Essential hypertension Surgical History Status post glaucoma surgery History of lipoma Rectal prolapse Family History Father Leukemia Mother No problems noted. Social History Housing: House Alcohol intake: former Patient Tobacco Use Status: Former Tobacco user Tobacco use type: Cigarette e-Cigarette/Vaping Use: Never Used Second Hand Smoke Exposure: No service: No Current occupational status: employed Current occupational exposures/hazards: No Cognitive needs: No Hearing needs: No Vision needs: Yes Review of Systems Const All systems reviewed & are unremarkable except as noted in HPI and below Physical Exam Vital Signs: Last Vital Signs Temp 97.0 F 04/28/24 08:47 Pulse 75 04/28/24 08:47 BP 132/76 04/28/24 08:47 Pulse Ox 98 04/28/24 08:47 Oxygen Delivery Method Room Air 04/28/24 08:47 BMI result Body Mass Index 24.7 Const General: cooperative, healthy appearing, comfortable and no acute distress Orientation/consciousness: patient oriented x3 Limitations: no limitations HEENT Head: Yes normal to inspection Ears: hearing grossly normal bilaterally, external ears normal and TM abnormal retracted General nose exam: Normal external nose present, No nasal discharge present and Abnormal mucous membranes and turbinates present boggy and pale Face and sinus: Yes normal facial exam and Yes sinuses nontender Mouth: Normal oral and palatal mucosa present and moist mucous membranes Throat: Yes tonsils normal, Yes uvula midline, Yes posterior oropharynx abnormal (Erythema), Yes postnasal drainage and Yes cobblestoning Eyes General: appearance normal, both eyes and all related structures Neck Neck: Yes normal visual inspection Resp Effort & Inspection: normal respiratory effort, able to speak in complete sentences, Actively coughing, no respiratory distress, not tachypneic, no tripod positioning and no use of accessory muscles Auscultation: clear to auscultation bilaterally Cardio Rate: regular rate Rhythm: regular rhythm Heart sounds: normal S1 and S2 Skin General skin exam: no rashes or lesions noted Neuro General: patient oriented x3 Extrem General: Yes normal to inspection and Yes no clubbing, cyanosis or edema Assessment & Plan Assessment & Plan (1) Allergic rhinitis: Code(s): J30.9 - Allergic rhinitis, unspecified Qualifiers: Allergic rhinitis seasonality: unspecified Allergic rhinitis trigger: unspecified Qualified Code(s): J30.9 - Allergic rhinitis, unspecified Plan: Supportive measures encouraged and reviewed. Advised patient to try a Flonase nasal spray and second-generation antihistamine such as Zyrtec, Claritin, Cecile or similar. Advised consideration of sinus rinse if needed. Advised patient to follow up with primary care provider with worsening or failure to resolve. Plan See above for full details and plan. Coding Level of Care Code Est Pt Level 3 (86693) Diagnoses Allergic rhinitis, unspecified seasonality, unspecified trigger J30.9 Allergic rhinitis seasonality: unspecified Allergic rhinitis trigger: unspecified
== END 2024-04-28 09:32 | disposition home or self-care (01) ==
PROVIDERS: PCP Internal Medicine; Visit Provider Registered Nurse
DX: J30.9 Allergic rhinitis, unspecified (principal)

== ENCOUNTER → 2024-08-15 09:54 | Outpatient (BNVA) | payer OTHER, SELFPAY | PROVIDERS: PCP Internal Medicine ==

== ENCOUNTER 2024-08-23 09:08 | Outpatient (AMB) | payer OTHER, SELFPAY ==
[2024-08-23 09:45] VITALS: BP 132/84; PULSE 75; TEMP 36.6; O2SAT 98
--- NOTE | 2024-08-23 09:45 | AM.OFFWIN_ITS ---
Intake Vital Signs 08/23/24 09:45 Height 6 ft 1 in BP 132/84 Blood Pressure Location Rt brachial Position Sitting Pulse 75 Pulse Source Pulse Oximeter Temp 97.9 F Temp Source Oral Pulse Oximetry (%) 98 Oxygen Delivery Method Room Air Intake Visit Reasons: EP trouble sleeping?? Patient Tobacco Use Status: Former Tobacco user Accompanied by: Self / Same As Patient Allergies amlodipine Adverse Reaction (Intermediate, Verified 08/23/24 09:45) leg edema Contrast dye Allergy (Intermediate, Uncoded 04/28/24 08:50) palpitations, vomiting Do you need a note to return to daycare/school/sports/work: No HPI HPI Comments History of Present Illness Details Renzo, a 60-year-old male with a history of insomnia and hypertension, presents with severe sleep disturbance and stress related to recent family losses and marital strain. The patient reports experiencing significant stress due to the loss of his in- laws within six months, including his [place]-law whom he was close to, who last March. He and his traveled to [place] to care for her father, with Renzo returning on July 26 and briefly going back for spring, returning on July 27. His has remained in [place] since May to care for her father, which has contributed to marital strain. Renzo's primary complaint is insomnia. He reports that for the past eight days, he has only been getting one hour of sleep per night, with the exception of the night before the visit. He attributes this improvement to taking ibuprofen 600 mg prescribed by an oral surgeon following dental surgery, along with Tylenol PM, which helped him achieve seven hours of sleep. The patient has been taking amitriptyline and trazodone for about 20 years to manage his sleep, but states these medications have not been effective recently. The patient reports feeling very sad at times and acknowledges the emotional toll of recent events. He mentions that he and his have been communicating more frequently by phone, and he has been making an effort to listen more. Regarding his medical regimen, Renzo reports taking blood pressure medication in addition to his sleep aids. He mentions that his brother, a medical doctor, prescribed trazodone and amlodipine, which were continued by Dr. Carpenter. [facility] Medical History Tachycardia Hypovitaminosis D Hematochezia Primary insomnia Essential hypertension Surgical History Status post glaucoma surgery History of lipoma Rectal prolapse Family History Father Leukemia Mother No problems noted. Social History Housing: House Alcohol intake: former Patient Tobacco Use Status: Former Tobacco user Tobacco use type: Cigarette e-Cigarette/Vaping Use: Never Used Second Hand Smoke Exposure: No service: No Current occupational status: employed Current occupational exposures/hazards: No Cognitive needs: No Hearing needs: No Vision needs: Yes Review of Systems Psych Reports abnormal sleep pattern and Reports anxiety Physical Exam Vital Signs: Last Vital Signs Temp 97.9 F 08/23/24 09:45 Pulse 75 08/23/24 09:45 BP 132/84 08/23/24 09:45 Pulse Ox 98 08/23/24 09:45 Oxygen Delivery Method Room Air 08/23/24 09:45 Const General: cooperative, healthy appearing, no acute distress and alert Orientation/consciousness: patient oriented x3 Limitations: no limitations HEENT Head: Yes normal to inspection Ears: hearing grossly normal bilaterally General nose exam: Normal external nose present Resp Effort & Inspection: normal respiratory effort and able to speak in complete sentences Cardio Rate: regular rate Skin General skin exam: no rashes or lesions noted Neuro General: patient oriented x3 Extrem General: Yes normal to inspection Assessment & Plan Assessment & Plan (1) Insomnia: Code(s): G47.00 - Insomnia, unspecified Qualifiers: Insomnia type: primary Qualified Code(s): F51.01 - Primary insomnia Plan: Acute exacerbation of chronic insomnia Assessment: - Patient reports a significant worsening of his chronic insomnia over the past 8 days, coinciding with recent stressful life events including the loss of in-laws and separation from his - He has been getting only one hour of sleep per night, except for last night when he slept for 7 hours after taking ibuprofen 600 mg and Tylenol PM following dental surgery - The patient has been on long-term treatment with amitriptyline and trazodone for approximately 20 years, but these medications have recently become ineffective - The acute exacerbation appears to be related to psychosocial stressors and may require medication adjustment Plan: - Increase trazodone dose gradually, starting with 75 mg at bedtime - If ineffective, may increase to 100 mg at bedtime - Maximum dose for insomnia is 200 mg - Recommend implementation of sleep hygiene practices - Consider adding melatonin supplement - Continue current medications: amitriptyline, amlodipine (for hypertension) - Follow up with scheduled psychiatrist appointment on September 03 at 9:30 AM at [facility] - Follow up with scheduled appointment at [facility] on November 05 at 10 AM (2) Anxiety: Code(s): F41.9 - Anxiety disorder, unspecified Plan: Adjustment disorder Assessment: - Patient is experiencing significant emotional distress related to multiple recent losses, including the of his in-laws and dg-udshbc-yb-law - He reports feeling very sad and is dealing with marital strain due to his 's prolonged absence while caring for her ill father - These symptoms are consistent with an adjustment disorder with depressed mood, triggered by identifiable psychosocial stressors Plan: - Encourage patient to maintain social support systems - Advise on the importance of having someone to talk to and establishing a good emergency support system - Reinforce the importance of attending scheduled psychiatrist appointment on September 03 for further evaluation and management - Consider referral for psychotherapy if not addressed by psychiatrist Coding Level of Care Code Est Pt Level 3 (11382) Diagnoses Primary insomnia F51.01 Insomnia type: primary Anxiety F41.9
== END 2024-08-23 10:22 | disposition home or self-care (01) ==
PROVIDERS: PCP Internal Medicine; Visit Provider Physician Assistant
DX: F51.01 Primary insomnia (principal); F41.9 Anxiety disorder, unspecified

== ENCOUNTER → 2024-08-23 09:08 | Outpatient (BNVA) | payer OTHER, SELFPAY | PROVIDERS: PCP Internal Medicine | DX: Z13.89 Encounter for screening for other disorder (principal) ==

== ENCOUNTER 2024-09-25 17:18 | Outpatient (AMB) | payer OTHER, SELFPAY ==
--- NOTE | 2024-09-25 17:24 | A.OFFPC_ITS ---
Vital Signs 09/25/24 17:26 09/25/24 18:07 Height 6 ft 1 in Weight 187 lb BMI 24.7 BP 168/82 H 135/70 Blood Pressure Location Lt brachial Lt brachial Position Sitting Sitting Intake Visit Reasons: annual pe Intake Note: Patient here for an annual physical exam Physical Laboratory Assistant Required: No Accompanied by: Self / Same As Patient Allergies amlodipine Adverse Reaction (Intermediate, Verified 09/25/24 17:35) leg edema Contrast dye Allergy (Intermediate, Uncoded 09/25/24 17:35) palpitations, vomiting Medication List - Last Reconciled 09/25/24 by Kathryn Wheeler MD amitriptyline 10 mg PO BEDTIME 90 days amlodipine-benazepril 5-40 mg 1 cap PO DAILY 90 days latanoprost 0.005% 1 drp ophthalmic (eye) QPM timolol maleate 0.5% 1 drp ophthalmic (eye) QAM trazodone 50 mg PO BEDTIME PRN 90 days Tobacco use date assessed: 09/25/24 Dental Screening Dental Screen Date: 09/25/24 Did you have a dental visit in the last 12 months?: Yes Did you have a dental problem in the last 6 months where you did not have access to dental care?: No Was dental information given to patient?: Patient has dentist HPI HPI Comments History of Present Illness Details The patient is a 60-year-old male presenting for a wellness visit, addressing grief-related insomnia and hypertension management. His insomnia began after multiple family losses, where he found bereavement therapy beneficial. Medications include amitriptyline and trazodone for sleep disturbances. His hypertension is managed with amlodipine and benazepril, but recent hypotensive readings suggest persistent elevation post-exercise despite compliance. He follows a routine glaucoma management plan including medication and recent laser surgery. A previously incomplete colonoscopy in 2019 warrants earlier follow-up. His family history is suggestive of occupational carcinogen exposure contributing to leukemia in his father. His surgical history includes successful excision of a lipoma and repair of rectal prolapse. - Discussed Tdap vaccine due every 10 ye ars; recommended and administered during the visit - Discussed scheduling an earlier repeat colonoscopy due to previous incomplete examination - Discussed hypertension management and potential lifestyle factors affecting blood pressure [facility] Medical History (Updated 09/25/24 @ 18:06 by Kathryn Wheeler MD) Tachycardia Hypovitaminosis D Hematochezia Primary insomnia Essential hypertension Surgical History Status post glaucoma surgery History of lipoma Rectal prolapse Family History Father Leukemia Mother No problems noted. Social History Housing: House Alcohol intake: former Patient Tobacco Use Status: Former Tobacco user Tobacco use type: Cigarette e-Cigarette/Vaping Use: Never Used Second Hand Smoke Exposure: No service: No Current occupational status: employed Current occupational exposures/hazards: No Cognitive needs: No Hearing needs: No Vision needs: Yes Questionnaire PHQ-9 Over the last 2 weeks, how often have you been bothered by any of the following problems? 1. Little interest or pleasure in doing things: not at all 2. Feeling down, depressed, or hopeless: not at all 3. Trouble falling or staying asleep, or sleeping too much: not at all 4. Feeling tired or having little energy: not at all 5. Poor appetite or overeating: not at all 6. Feeling bad about yourself - or that you are a failure or have let yourself or your family down: not at all 7. Trouble concentrating on things, such as reading the newspaper or watching television: not at all 8. Moving or speaking so slowly that other people could have noticed. Or the opposite - being so fidgety or restless that you have been moving around a lot more than usual: not at all 9. Thoughts that you would be better off or of hurting yourself in some way: not at all Total score: 0 Depression Screening Interpretation: Negative Depression Screening Done: Yes 91650 - PHQ-9 Billing: Yes Source: Developed by Drs. Fernando Blair, Pretty Alvarado, César Cowart and colleagues, with an educational sendy from [employer]. Thrive Questionnaire Date Thrive assessed: 09/25/24 I am a: Patient What is your living situation today?: I have a steady place to live Within the past 12 months, did the food you bought not last and you didn't have the money to get more?: Never true Within the past 12 months, did you worry whether your food would run out before you got money to buy more?: Never true Do you have trouble paying for medicines?: No Do you have trouble getting transportation to medical appointments?: No Do you have trouble paying your heating and electricity bill?: No Do you have trouble taking care of your child, family member or friend?: No Do you have trouble with day-to-day activities such as bathing, preparing meals, shopping, managing finances, etc.?: No Are you currently unemployed and looking for a job?: No Are you interested in more education?: No Please select the resources that you would like help with: None Currently or been in a relationship where the following occur: No concerns reported THRIVE Score: 0 AUDIT C Alcohol Use Questionnaire (AUDIT-C) 1. How often do you have a drink containing alcohol?: Never Total Score: 0 Score Reviewed/Action Taken: No RANJEET-7 AMB Questionnaire RANJEET-7 Date RANJEET - 7 assessed: 09/25/24 Feeling nervous, anxious, or on edge: 1 = Several days Not being able to stop or control worryin = Not at all Worrying too much about different things: 0 = Not at all Trouble relaxin = Not at all Being so restless that it is hard to sit still: 0 = Not at all Becoming easily annoyed or irritable: 0 = Not at all Feeling afraid as if something awful might happen: 0 = Not at all Total RANJEET-7 score (0-4 normal; 5-9 mild; 10-14 moderate; 15-21 severe): 1 Source: Developed by Drs. Fernando Blair, Pretty Alvarado, César Cowart and colleagues, with an educational sendy from [employer]. RANJEET-7 Assessment Billing RANJEET-7 Assessment Tool: RANJEET-7 Assessment 95345 Review of Systems Const All systems reviewed & are unremarkable except as noted in HPI and below Card Denies chest pain at rest, Denies chest pain with activity, Denies edema, Denies irregular heart rhythm, Denies claudication, Denies dyspnea, Denies dyspnea on exertion, Denies orthopnea, Denies paroxysmal nocturnal dyspnea and Denies slow heart rate Resp Denies cough, Denies dyspnea and Denies dyspnea on exertion GI Denies abdominal pain, Denies change in bowel habits, Denies excessive flatus, Denies nausea and Denies vomiting Physical exam (Primary Care) Vital Signs: Last Vital Signs BP 135/70 09/25/24 18:07 BMI result Body Mass Index 24.7 Tobacco/Smoking Status: Tobacco use Status Tobacco use date assessed 09/25/24 09/25/24 17:36 Patient Tobacco Use Status Former Tobacco user 09/25/24 17:29 Tobacco use type Cigarette 09/25/24 17:29 e-Cigarette/Vaping Use Never Used 09/25/24 17:29 PHQ-9: PHQ-9 Score PHQ-9: Total score 0 09/25/24 18:09 Depression Screening Interpretation: Negative Thrive Assessment: Date of Thrive Assessment Date Thrive assessed 09/25/24 09/25/24 17:36 Currently or been in a relationship where the following occur: No concerns reported HENMT Head: Yes normal to inspection, Yes normocephalic and Yes atraumatic Ears: external ears normal Eyes General: appearance normal, both eyes and all related structures Eyelids: Yes eyelids normal Conjunctivae: conjunctivae normal Neck Neck: Yes normal visual inspection and Yes supple Resp Effort & Inspection: normal respiratory effort Auscultation: clear to auscultation bilaterally Cardio Jugular venous distension: no JVD Rate: regular rate Rhythm: regular rhythm Heart sounds: S1 normal heart sound present and S2 normal heart sound present GI Inspection: Yes normal to inspection Palpation (GI): Soft to palpation and nontender Auscultation: normal bowel sounds Skin General skin exam: no rashes or lesions noted Neuro General: no focal motor deficits Extrem General: Yes full ROM Psych Appearance: grossly normal Immunizations Boostrix Tdap 2.5 Lf unit-8 mcg-5 Lf/0.5 mL intramuscular syringe Performing Provider: Kathryn Wheeler MD [facility] Administered by: MAYRA Gonzalez on 09/25/24 18:10 Dose Route Admin Location Dispensed Lot Number Expiration Date [facility] Bottom Ironer 0.5 mL IM Left Deltoid 0.5 mL [id number] 01/07/27 85110-993-55 [employer] VIS Given Date VIS Provided VIS Publication Date 09/25/24 Single Vaccine 24 Eligibility Eligibility Date Funding Source Not [facility] Eligible 09/25/24 Private Coding Level of Care Code Complex EM visit Add On G2211 Diagnoses Physical exam Z00.00 Additional Codes RANJEET-7 Assessment Billing - RANJEET-7 Assessment Tool: RANJEET-7 Assessment 29669 ([id number]) PHQ-9 - 46769 - PHQ-9 Billing: Yes ([id number]) Time Spent (min) 38 Assessment & Plan Assessment & Plan (1) Physical exam: Code(s): Z00.00 - Encounter for general adult medical examination without abnormal findings Category: Medical Plan The patient will focus on maintaining hypertension control through medication adherence and lifestyle changes. He will continue his bereavement therapy to manage grief-related insomnia effectively. Current glaucoma intervention remains satisfactory, requiring consistent adherence to prescribed ocular drops. Schedule a repeat colonoscopy with Dr. Munoz due to previous incomplete preparation. The Tdap vaccine was administered during this visit. Blood work will be arranged to complete outstanding health screenings. For hepatitis A exposure risk, precautionary measures are in place without current patient symptoms. Patient was informed and verbally consented to the use of an ambient scribe for clinic note documentation during this visit. We reviewed the patient's recent blood pressure history and strategies for maintenance, emphasizing the role of consistent medication and lifestyle practices in achieving stable readings. The importance of professional therapy support was reinforced for grief-related insomnia management, with encouragement to continue attending. He was advised about the benefits of further diagnostics and follow-ups, including a repeat colonoscopy and regular ophthalmologic assessments post-glaucoma surgery. We discussed the Tdap vaccine, and it was administered for current prophylaxis. We ensured awareness regarding his family history and potential implications. Follow-up protocols for laboratory work to address any additional health concerns were reviewed. Orders: Orders Comprehensive [place]. Panel Fast 09/25/24 Z00.00 - Encounter for general adult medical examination without abnormal findings Lipid Panel 09/25/24 Z00.00 - Encounter for general adult medical examination without abnormal findings TDaP Immunization 09/25/24 Z23 - Encounter for immunization Referrals Gastroenterology Referral Z12.11 - Encounter for screening for malignant neoplasm of colon Patient Instructions: - Take all prescribed medications as directed. - Continue grief therapy sessions regularly. - Monitor blood pressure at home. - Maintain a healthy and active lifestyle. - Complete recommended blood work as scheduled. - Arrange a repeat colonoscopy with Dr. Munoz. - Return for any concerning symptoms or guidance. - Contact if needing additional support or clarification on health management.
[2024-09-25 17:26] VITALS: BP 168/82; BMI 24.7
[2024-09-25 18:07] VITALS: BP 135/70
== END 2024-09-25 17:43 | disposition home or self-care (01) ==
LOC: HO.HMCH 17:18
PROVIDERS: PCP Internal Medicine; Visit Provider Internal Medicine
DX: Z23 Encounter for immunization (principal)

== ENCOUNTER → 2024-09-25 17:18 | Outpatient (BNVA) | payer OTHER, SELFPAY | PROVIDERS: PCP Internal Medicine; Visit Provider Internal Medicine | DX: Z00.00 Encounter for general adult medical examination without abnormal findings (principal); I10 Essential (primary) hypertension; Z23 Encounter for immunization | CPT/HCPCS: 90471; 90715; 96127 ==

== ENCOUNTER 2024-11-06 08:10 | Outpatient (REF) | payer OTHER, SELFPAY ==
--- OUTSIDE RECORDS SUMMARY | 2024-11-06 08:21 | XMS_ITS | Patient Health Record ---
Author Organization [facility] Address [address] [place] [address] Care Team Providers Care Organizational Effectiveness Consultant Name Role Phone Kathryn Nguyen Primary Care Provider Fernando Leiva Unavailable [phone] Allergies Allergen (clinical drug ingredient) Drug/Non Drug Allergy documented on EMR Reaction Allergy Type Onset Date Status IVP dye for MRI's (uncoded) Unknown Allergy Active Reason For Referral No Information Medications Medication SIG (Take, Route, Fr equency, Duration) Notes Start Date End Date Status amLODIPine Besylate Active Amitriptyline HCl Ac tive Immunizations Vaccine Route Administration Date Status Comme nts Influenza Unknown 02/19/2018 Administered Social History Tobacco Use: Social History Observation Description Date Details (start date - stop date) Former Smoker NA - NA Tobacco Use/Smoking Question Answer Notes Patient is a former smoker How long has it been since you last smoked? > 10 years Alcohol Screen Question Answer Notes Did you have a drink contain ing alcohol in the past year? Yes How often did you have a dri nk containing alcohol in the past year? 4 or more times a week (4 points) How many drinks did you have on a typical day when you were drinking in the past year? 1 or 2 drinks (0 point) How often did you have 6 or more drinks on one occasion in the past year? Never (0 point) Points 4 Interpretation Positive Section Notes: Nonsmoker > 20 yrs; no sig alcohol He is originally from [place] Problems Problem Type SNOMED Code ICD Code Onset Dates Problem Status W/U Status Risk Notes Problem [id number] Encounter for screening for malignant neoplasm of colon (Z12.11) Active confirmed Problem [id number] Pre-procedural examination (Z01.818) Active confirmed Plan Of Treatment Future Test Test Name Order Date COLONOSCOPY 05/02/2018 Next Appt Details Provider Name:Fernando Roche , 02/05/2025 09:00:00 AM, [address] [facility], [address], [place], [address], Insurance Providers Payer Name Payer Address Payer Phone Subscriber Number Group Number Insured Name Patient Relationship to Insured Coverage Start Date Coverage End Date [employer] [address] [place] [address] [place] [id number] DANIELA JOHN Self - patient is the insured Medical (General) History Medical History History ICD Code Hypertension Denies MD,DM,CVA,Lung disease,renal dise ase Colonoscopy > 10 yrs ago at [facility]--reportedly negative except for a fissure by his report Takes Amitryptilene for sleep Surgical History Surgery Date(Month/Year) Rectal prolaspe surgery 2005
[2024-11-06 08:37] LABS: Hematocrit 44.8 % (42.0-52.0); Hemoglobin 16.3 g/dl (14.0-18.0); Mean Corpuscular HGB Conc 36.4 g/dl (31.0-36.0); Mean Corpuscular Hemoglobin 30.3 pg (27.0-33.0); Mean Corpuscular Volume 83.3 fL (80.0-98.0); Mean Platelet Volume 10.2 fL (9.4-12.4); Platelet Count 197 X10*3/uL (160-400); Red Blood Count 5.38 X10*6/uL (4.60-5.80); White Blood Count 4.6 X10*3/uL (4.8-10.8)
[2024-11-06 09:11] LABS: Alanine Aminotransferase 30 U/L (0-40); Albumin Level 4.5 g/dL (3.5-5.0); Alkaline Phosphatase 93 U/L (39-117); Anion Gap 10 (12-20); Aspartate Amino Transferase 25 U/L (5-37); Bilirubin Total 0.5 mg/dL (0.0-1.0); Blood Urea Nitrogen 9 mg/dL (9-16); Calcium 8.9 mg/dL (8.4-10.2); Carbon Dioxide 27 mmol/L (22-29); Chloride 106 mmol/L (96-108); Cholesterol 199 mg/dL (<200); Estimated Glomerular Filt Rate > 60; Glucose Random 104 mg/dL (60-115); HDL Cholesterol 36 mg/dL (>40); LDL Cholesterol Calculated 122 mg/dL (<100); Potassium 3.9 mmol/L (3.3-5.1); Sodium 139 mmol/L (135-145); Total Protein 7.6 g/dL (6.5-8.0); Triglycerides 208 mg/dL (<150)
[2024-11-06 09:29] LABS: Prostate Specific Antigen Scr 0.53 ng/mL (<0.05-4.0)
[2024-11-08 02:32] LABS: Follicle Stimulating Hormone 6.5 mIU/mL (1.4-12.8); Lutenizing Hormone 2.4 mIU/mL (1.6-15.2)
[2024-11-10 13:28] LABS: Testosterone, Free 88.2 pg/mL (35.0-155.0); Testosterone, Total 891 ng/dL (250-1100)
[2024-11-13 21:44] LABS: Estradiol Ultra Sensitive 44 pg/mL (< OR = 29)
[2024-11-17 01:54] LABS: Dihydrotestosterone 80 ng/dL (12-65)
== END 2024-11-06 08:11 | disposition home or self-care (01) ==
LOC: HO.LAB 08:10
PROVIDERS: PCP Internal Medicine; Visit Provider Internal Medicine
DX: E29.1 Testicular hypofunction (principal); K76.0 Fatty (change of) liver, not elsewhere classified; Z12.5 Encounter for screening for malignant neoplasm of prostate
CPT/HCPCS: 36415; 80053; 80061; 82642; 82670; 83001; 83002; 84153; 84402; 84403; 85027

== ENCOUNTER 2025-01-28 16:47 | Outpatient (AMB) | payer OTHER, SELFPAY ==
[2025-01-28 16:49] VITALS: BP 150/82; PULSE 78; O2SAT 98; BMI 25.3
--- NOTE | 2025-01-28 16:49 | MHC.PC.OV ---
Vital Signs 01/28/25 16:49 Height 6 ft 1 in Weight 192 lb BMI 25.3 BP 150/82 H Blood Pressure Location Lt brachial Position Sitting Pulse 78 Pulse Oximetry (%) 98 Intake Visit Reasons: bp per anton 30 min Interactive Video Technician Required: No Accompanied by: Self / Same As Patient Allergies amlodipine Adverse Reaction (Intermediate, Verified 01/28/25 16:55) leg edema Contrast dye Allergy (Intermediate, Uncoded 01/28/25 16:55) palpitations, vomiting Medication List - Last Reconciled 01/28/25 by Kathryn Wheeler MD amitriptyline 10 mg PO BEDTIME 90 days amlodipine-benazepril 5-40 mg 1 cap PO DAILY 90 days latanoprost 0.005% 1 drp ophthalmic (eye) QPM timolol maleate 0.5% 1 drp ophthalmic (eye) QAM trazodone 50 mg PO BEDTIME PRN 90 days Tobacco use date assessed: 09/25/24 Dental Screening Dental Screen Date: 09/25/24 HPI HPI Comments History of Present Illness Details This is a 61-year-old male with hypertension and insomnia that comes today for follow-up on his conditions. Blood pressure elevated and his compliant with his medications. Blood pressure will be recheck in 3 weeks by nurse navigator. He is sleeping better since he takes multiple supplements prescribed from [facility]. Had labs done and has mild elevation of estradiol and dihydrotestosterone. No chest pain or shortness on breath. Minimal occasional leg swelling and I recommend compression stockings. [facility] Medical History Tachycardia Hypovitaminosis D Hematochezia Primary insomnia Essential hypertension Surgical History Status post glaucoma surgery History of lipoma Rectal prolapse Family History Father Leukemia Mother No problems noted. Social History Housing: House Alcohol intake: former Patient Tobacco Use Status: Former Tobacco user Tobacco use type: Cigarette e-Cigarette/Vaping Use: Never Used Second Hand Smoke Exposure: No service: No Current occupational status: employed Current occupational exposures/hazards: No Cognitive needs: No Hearing needs: No Vision needs: Yes Questionnaire Thrive Questionnaire Date Thrive assessed: 09/25/24 RANJEET-7 AMB Questionnaire RANJEET-7 Date RANJEET - 7 assessed: 09/25/24 Source: Developed by Drs. Fernando Blair, Pretty Alvarado, César Cowart and colleagues, with an educational sendy from [email or web address]. Review of Systems Const All systems reviewed & are unremarkable except as noted in HPI and below Card Denies chest pain at rest, Denies chest pain with activity, Denies edema, Denies irregular heart rhythm, Denies claudication, Denies dyspnea, Denies dyspnea on exertion, Denies orthopnea, Denies paroxysmal nocturnal dyspnea and Denies slow heart rate Resp Denies cough, Denies dyspnea and Denies dyspnea on exertion Physical exam (Primary Care) Vital Signs: Last Vital Signs Pulse 78 01/28/25 16:49 BP 150/82 H 01/28/25 16:49 Pulse Ox 98 01/28/25 16:49 BMI result Body Mass Index 25.3 Tobacco/Smoking Status: Tobacco use Status Tobacco use date assessed 09/25/24 01/28/25 16:54 Patient Tobacco Use Status Former Tobacco user 01/28/25 16:54 Tobacco use type Cigarette 01/28/25 16:54 e-Cigarette/Vaping Use Never Used 01/28/25 16:54 Thrive Assessment: Date of Thrive Assessment Date Thrive assessed 09/25/24 01/28/25 16:54 Resp Effort & Inspection: normal respiratory effort Auscultation: clear to auscultation bilaterally Cardio Jugular venous distension: no JVD Rate: regular rate Rhythm: regular rhythm Heart sounds: S1 normal heart sound present and S2 normal heart sound present Extrem General: Yes full ROM Coding Level of Care Code Est Pt Level 3 (65362) Complex EM visit Add On G2211 Diagnoses Essential hypertension I10 Primary insomnia F51.01 Time Spent (min) 23 Assessment & Plan Assessment & Plan (1) Essential hypertension: Code(s): I10 - Essential (primary) hypertension Category: Medical (2) Primary insomnia: Code(s): F51.01 - Primary insomnia Category: Medical Plan Continue current meds.
--- OUTSIDE RECORDS SUMMARY | 2025-01-28 19:23 | XMS_ITS | Patient Health Record ---
Author Organization [facility] Address [address] [place] [address] Care Team Providers Care Coding Educator Name Role Phone Kathryn Nguyen Primary Care Provider Fernando Leiva Unavailable [phone] Allergies Allergen (clinical drug ingredient) Drug/Non Drug [...] no sig alcohol He is originally from [place] Problems Problem Type SNOMED Code ICD Code Onset Dates Problem Status W/U Status Risk Notes Problem 502195755 Encounter for screening for malignant neoplasm of colon (Z12.11) Active confirmed Problem 889199884882282 Pre-procedural examination (Z01.818) Active confirmed Plan Of Treatment Future Test Test Name Order Date COLONOSCOPY 05/02/2018 Next Appt Details Provider Name:Fernando Roche , 02/05/2025 09:00:00 AM, [address] [facility], [address], [place], [address], Insurance Providers Payer Name Payer Address Payer Phone Subscriber Number Group Number Insured Name Patient Relationship to Insured Coverage Start Date Coverage End Date [employer] [address] [place] [address] [facility] [place] [phone] [id number] DANIELA JOHN Self - patient is the insured Medical (General) History Medical History History ICD Code Hypertension Denies RI,DM,CVA,Lung disease,renal dise ase Colonoscopy > 10 yrs ago at [facility]--reportedly negative except for a fissure by his report Takes Amitryptilene for sleep Surgical History Surgery Date(Month/Year) Rectal prolaspe surgery 2005
== END 2025-01-28 17:19 | disposition home or self-care (01) ==
LOC: HO.HMCH 16:47
PROVIDERS: PCP Internal Medicine; Visit Provider Internal Medicine
DX: I10 Essential (primary) hypertension (principal); F51.01 Primary insomnia